=== PATIENT | female | born 1960 | race Caucasian/White ===

== ENCOUNTER → 2016-11-01 | Outpatient (CLI) | payer OTHER ==
[~2016-11-01] MED LIST: CODE30TA3 PO; COLA100C2 OR; EXTR500C4 PO; FERR325T OR; HYDR1CRE TOP; IBUP800T OR; LORT5TAB PO; MELA1CAP PO; No Medications; OYSTER SHELL CA PO; TRAZADONE PO; TYLENOL PO; voltaren PR
--- NOTE | 2016-11-01 15:25 | REPMRS ---
Patient History The patient states she had a clinical breast exam in 04/16 Patient is postmenopausal. No known family history of cancer. Digital Woman Screen Mammo: November 01, 2016 - Exam #: [id number] Bilateral CC and MLO view(s) were taken. Technologist: Kacie Alcocer, Technologist Prior study comparison: November 29, 2015, digital bilateral screening mammo, performed at [facility]. FINDINGS: There are scattered fibroglandular densities. There has been no change in the appearance of the mammogram from the prior studies. There is a mild amount of residual fibroglandular tissue which is fairly symmetric. There is no interval development of dominant mass, architectural distortion, or clustered microcalcification suggestive of malignancy. ASSESSMENT: BI-RADS/ACR category 1 mammogram. Negative. Recommendation Routine screening mammogram in 1 year (for women over age 40). This mammogram was interpreted with the aid of an FDA-approved computer-aided dectection system. Electronically Signed By: Dean Hutson MD 11/01/16 1159
== END ==
LOC: M WHC 14:36
PROVIDERS: ATTEND Physician Assistant
DX: Z12.31 Encounter for screening mammogram for malignant neoplasm of breast (principal)

== ENCOUNTER → 2018-03-24 | Outpatient (CLI) | payer OTHER | LOC: M RAD 09:06 | DX: Z12.31 Encounter for screening mammogram for malignant neoplasm of breast (principal); Z80.3 Family history of malignant neoplasm of breast | CPT/HCPCS: 77067 ==